=== PATIENT | female | born 1965 | race Caucasian/White ===

== ENCOUNTER → 2017-03-18 | Outpatient (CLI) | payer OTHER | LOC: MAMO 13:30 | DX: Z12.31 Encounter for screening mammogram for malignant neoplasm of breast (principal) | CPT/HCPCS: G0202 ==

== ENCOUNTER → 2021-01-23 | Outpatient (CLI) | payer BC, OTHER ==
[~2021-01-23] MED LIST: FLEXERIL 10 MG10 MG PO; NORCO 5-325 TA1 EACH PO
[2021-01-23 15:14] LABS: HEMOGLOBIN 15.5 gm/dl (12.3-15.3); RED BLOOD COUNT 4.85 M/UL (4.00-5.10); WHITE BLOOD COUNT 5.7 K/UL (4.5-11.0)
[2021-01-23 15:51] LABS: BUN/CREATININE RATIO 19 (0-10)
[2021-01-25 07:12] LABS: VITAMIN D, 25-HYDROXY 39.8 ng/mL (30.0-100.0)
[2021-02-01 13:14] LABS: COTININE >1000.0 ng/mL (.); NICOTINE >1000.0 ng/mL (.)
[2021-02-07 01:09] LABS: COTININE 112.5 ng/mL (.); NICOTINE 5.5 ng/mL (.)
== END ==
LOC: LAB 14:06
PROVIDERS: Family Medicine
DX: Z01.818 Encounter for other preprocedural examination (principal)
CPT/HCPCS: 80053; 81001; 83036; 85025; 85610; 85730; 87081; G0480